=== PATIENT | male | born 1985 | race African-American/Black ===

== ENCOUNTER 2017-06-02 11:18 | Emergency (ER) | payer OTHER ==
[~2017-06-02] VITALS: Ht 180.3 cm; Wt 80.4 kg
[2017-06-02 11:53] LABS: BICARBONATE 27.3 mEq/L (22-26); CARBOXY HGB 2.3 % (0-5); COMMENTS - BLOOD GASES A+C+; PCO2 44 mm Hg (35-45); PO2 76 mm Hg (80-100); SITE LR; TOTAL RESP RATE 18 resp/min
[2017-06-02 12:12] LABS: ADD MIUA? NO; BILIRUBIN NEGATIVE; BLOOD NEGATIVE; COLOR YELLOW ((YELLOW)); GLUCOSE (STRIP) NEGATIVE; KETONES 5; LEUKOCYTES NEGATIVE; NITRITE NEGATIVE; PROTEIN (STRIP) NEGATIVE; SPECIFIC GRAVITY 1.011 (1.000-1.030); UCUL ADDED? NO; UROBILINOGEN 0.2 MG/DL (0.2-1.0)
[2017-06-02 12:20] LABS: AMPHETAMINE NEGATIVE (500 ng/mL); BARBITURATES NEGATIVE (200 ng/mL); BENZODIAZEPINES NEGATIVE (150 ng/mL); COCAINE NEGATIVE (150 ng/mL); INTERNAL CONTROLS VALID? YES; METHADONE NEGATIVE (200 ng/mL); METHAMPHETAMINE NEGATIVE (500 ng/mL); OPIATES (MORPHINE) NEGATIVE (100 ng/mL); OXYCODONE NEGATIVE (100 ng/mL); PHENCYCLIDINE NEGATIVE (25 ng/mL); PROPOXYPHENE NEGATIVE (300 ng/mL); THC CANNABINOIDS NEGATIVE (50 ng/mL); TRICYCLIC ANTIDEPRESSANTS NEGATIVE (300 ng/mL)
[2017-06-02] MEDS ORDERED: COGENTIN2 MG PO (12:26)
[2017-06-02] MEDS ORDERED: HALDOL DEC50 MG/1 ML IM (12:27)
[2017-06-02 12:53] LABS: EOSINOPHIL (%) 0 % (0-5); HEMATOCRIT 44.7 % (38.0-50.0); IMMATURE GRANULOCYTE (%) 0.2 % (0.0-0.7); LYMPHOCYTE COUNT 0.6 K/uL (1.0-2.8); MCH 22.9 PG (29.0-34.0); MCHC 30.9 G/DL (30.0-36.0); MCV 74.3 FL (86-99); MEAN PLAT.VOLUME 10.5 uM^3 (9.0-12.4); MONOCYTE (%) 5.1 % (3-12); MONOCYTE COUNT 0.5 K/uL (0-0.8); PLATELET COUNT 244 K/uL (156-360); RBC DIS.WIDTH-CV 12.9 % (11.8-14.6); RBC DIS.WIDTH-SD 34.1 % (39-53); RED BLOOD COUNT 6.02 M/uL (4.00-5.50); WHITE BLOOD COUNT 10.1 K/uL (4.1-10.2)
[2017-06-02 12:59] LABS: CHLORIDE 106 mEq/L (99-109); SODIUM 145 mEq/L (136-147)
[2017-06-02 13:00] LABS: MAGNESIUM 2.3 mg/dL (1.3-2.7)
[2017-06-02 13:01] LABS: GLUCOSE 95 mg/dL (70-99)
[2017-06-02 13:02] LABS: ANION GAP 15 MEQ/L (2-14)
[2017-06-02 13:04] LABS: SERUM ETHYL ALCOHOL < 10 mg/dL; TROP-I INTERPRETATION NEGATIVE; TROPONIN-I < 0.01 ng/mL (0.0-0.30)
[2017-06-02 13:05] LABS: GFR ESTIMATE (CALCULATED) > 59 mL/min/
[2017-06-02 13:06] LABS: UREA NITROGEN (BUN) 7 mg/dL (9-23)
[2017-06-02 13:08] LABS: CREATINE KINASE 271 IU/L (1-294); SALICYLATE < 5.0 MG/DL (15-30)
[2017-06-02 13:14] LABS: INTER. NORMALIZED RATIO 1.2; PROTHROMBIN TIME 12.7 SEC (10.2-12.9)
[2017-06-02 17:00] VITALS: BP 119/63
== END 2017-06-02 17:22 | disposition short-term general hospital (02) ==
LOC: EME 11:18
PROVIDERS: Emergency Medicine
DX: G93.40 Encephalopathy, unspecified (principal); R56.9 Unspecified convulsions
CPT/HCPCS: 36600; 70450; 71010; 80048; 81003; 82550; 82803; 83735; 84484; 85025; 85610; 85730; 87040; 87801; 93005; 99281; 99285; G0480; J2310; J2405; J7030